=== PATIENT | female | born 1950 | race Caucasian/White ===

== ENCOUNTER → 2020-06-02 | Outpatient (CLI) | payer MEDICARE ==
--- NOTE | 2020-06-02 16:58 | RAD ---
EXAM: Bilateral lower extremity arterial Doppler sonogram. HISTORY: Nonpalpable pulses. Atherosclerosis. Pain. Hypertension. Cigarette smoking history. TECHNIQUE: Morris scale and color Doppler sonographic imaging of the lower extremity arteries with spec tral waveform analysis was performed. COMPARISON: None. FINDINGS: There are biphasic and triphasic waveforms throughout the bilateral lower extremity arterie s, with exception of monophasic waveform within the proximal left posterior tibial artery. There are are elevated peak systolic velocities within the left common femoral and deep femoral arteries, measu ring 163 cm/s and 164 cm/s. The remainder of the peak systolic velocities are within normal limits. IMPRESSION: 1. Abnormal monophasic waveform within the proximal left posterior tibial artery. This can be seen wi th hemodynamically significant proximal stenosis. 2. Elevated peak systolic velocities within the left common femoral and deep femoral arteries, sugges ting mild stenosis. 3. No evidence of arterial occlusion. Electronically signed by: Petra Prasad MD (06/02/2020 4:56 PM) [id number]
== END ==
LOC: US 15:21
PROVIDERS: ATTEND Podiatrist
DX: R09.89 Other specified symptoms and signs involving the circulatory and respiratory systems (principal)
CPT/HCPCS: 93925

== ENCOUNTER → 2020-07-19 | Outpatient (CLI) | payer MEDICARE ==
--- NOTE | 2020-07-19 14:45 | CARD ---
MR#: [id number] Date of Study: 07/19/2020 Ordering Physician: JUDAH ARNOLD, Referring Physician: JUDAH ARNOLD, Tech: Jami Reese, [facility] APPROVED REPORT EXAM: Two-dimensional and M-mode echocardiogram with Doppler and color Doppler. Other Information Quality : AverageHR: 86bpm INDICATION Hypertension/HCVD RISK FACTORS Smoking 2D DIMENSIONS RVDd3.0 (2.9-3.5cm)Left Atrium(2D)2.6 (1.6-4.0cm) IVSd1.0 (0.7-1.1cm)Aortic Root(2D)2.8 (2.0-3.7cm) LVDd4.8 (3.9-5.9cm)LVOT Diameter2.0 (1.8-2.4cm) PWd1.0 (0.7-1.1cm)LVDs2.4 (2.5-4.0cm) FS (%) 49.1 %SV86.0 ml LVEF(%)70.4 (>50%) Aortic Valve AoV Peak Tj.129.0cm/sAoV VTI24.1cm AO Peak GR.6.7mmHgLVOT Peak Tj.103.6cm/s LVOT VTI 19.62cmAO Mean GR.4mmHg RONAK (VMAX)2.24jz3RXS (VTI)2.64cm2 Mitral Valve MV E Beddpbyv23.6cm/sMV DECEL [id number] MV A Syapomfu99.0cm/sMV CPE51jn E/A Ratio0.7MVA (PHT)3.63cm2 TDI E/Lateral E'8.4E/Medial E'9.1 Pulmonary Valve PV Peak Kdbdymos52.3cm/sPV Peak Grad.2mmHg Tricuspid Valve TR P. Wklxkxav676yx/sRAP [id number] TR Peak Gr.03pfVpYRMU68guXg Pulmonary Vein S1 Xdtxgqqz94.3cm/sD2 Fpmbatdk41.6cm/s PVa sogragea562uhuq LEFT VENTRICLE The left ventricle is normal size. There is normal left ventricular wall thickness. The left ventricu lar systolic function is normal and the ejection fraction is within normal range. The Ejection Fracti on is 50-55%. There is normal LV segmental wall motion. Transmitral Doppler flow pattern is Grade I-a bnormal relaxation pattern. RIGHT VENTRICLE The right ventricle is normal size. There is normal right ventricular wall thickness. The right ventr icular systolic function is normal. ATRIA The left atrium size is normal. The right atrium size is normal. The interatrial septum is intact wit h no evidence for an atrial septal defect or patent foramen ovale as noted on 2-D or Doppler imaging. AORTIC VALVE The aortic valve is calcified but opens well. Doppler and Color Flow revealed trace aortic regurgitat ion. There is no significant aortic valvular stenosis. Calculated aortic valve area is 2.72 cm2 with maximum pressure gradient of 8 mmHg and mean pressure gradient of 4 mmHg. MITRAL VALVE The mitral valve is normal in structure and function. There is no evidence of mitral valve prolapse. There is no mitral valve stenosis. Doppler and Color-flow revealed trace mitral regurgitation. TRICUSPID VALVE The tricuspid valve is normal in structure and function. Doppler and Color Flow revealed trace tricus pid regurgitation with an estimated PAP of 27 mmHg. There is no tricuspid valve stenosis. PULMONIC VALVE The pulmonic valve is not well visualized. Doppler and Color Flow revealed no pulmonic valvular regur gitation. There is no pulmonic valvular stenosis. GREAT VESSELS The aortic root is normal in size. The ascending aorta is mildly dilated measuring 3.4 cm. The IVC is normal in size and collapses >50% with inspiration. PERICARDIAL EFFUSION There is no evidence of significant pericardial effusion. Critical Notification Critical Value: No <Conclusion> The left ventricular systolic function is normal and the ejection fraction is within normal range. Th e Ejection Fraction is 50-55%. There is normal LV segmental wall motion. Signed by : Zay Saba, Electronically Approved : 07/19/2020 14:45:31
== END ==
LOC: ECHO 10:46
PROVIDERS: ATTEND Internal Medicine Cardiovascular Disease
DX: I35.1 Nonrheumatic aortic (valve) insufficiency (principal); I10 Essential (primary) hypertension
CPT/HCPCS: 93306